=== PATIENT | female | born 1940 | race Caucasian/White ===

== ENCOUNTER 2020-12-15 14:06 | Outpatient (CLI) | payer MEDICARE, OTHER | END 2020-12-15 14:07 | disposition home or self-care (01) | LOC: CSHULT 14:06 | PROVIDERS: ATTEND Internal Medicine | DX: H00-H59 Diseases of the eye and adnexa (principal) | CPT/HCPCS: 93880 ==

== ENCOUNTER 2025-04-23 13:24 | Outpatient (CLI) | payer MEDICARE | END 2025-04-23 13:25 | disposition home or self-care (01) | LOC: CSHMAMMO 13:24 | PROVIDERS: ATTEND Internal Medicine | DX: Z78.0 Asymptomatic menopausal state (principal); M81.0 Age-related osteoporosis without current pathological fracture | CPT/HCPCS: 77080 ==